=== PATIENT | male | born 1965 | race Caucasian/White ===

== ENCOUNTER 2024-12-26 11:45 | Inpatient (IN) | payer OTHER ==
[~2024-12-26] VITALS: Ht 167.6 cm; Wt 68.0 kg
[2024-12-26 14:47] LABS: EOSINOPHILS % (AUTO) 1.2 % (1.0-6.0); HEMATOCRIT 39.1 % (41-53); HEMOGLOBIN 13.2 g/dL (13.5-17.5); LYMPHOCYTES # (AUTO) 1.8 K/uL (1.0-4.8); LYMPHOCYTES % (AUTO) 13.8 % (22.0-44.0); MEAN CORPUSCULAR HEMOGLOBIN 31.6 pg (26.0-34.0); MEAN CORPUSCULAR HGB CONC 33.8 G/dL (31.0-37.0); MEAN CORPUSCULAR VOLUME 93 fL (80-100); MONOCYTES # (AUTO) 1.1 K/uL (0.1-1.0); MONOCYTES % (AUTO) 8.7 % (2.0-9.0); NEUTROPHILS # (AUTO) 9.7 K/uL (1.8-7.7); NEUTROPHILS % (AUTO) 75.3 % (40.0-70.0); PLATELET COUNT (AUTO) 706 K/uL (150-450); RED BLOOD CELL COUNT(AUTO) 4.19 MIL/uL (4.50-5.90); RED CELL DISTRIBUTION WIDTH 13.1 % (11.5-14.5); WHITE BLOOD COUNT (AUTO) 12.9 K/uL (4.5-11.0)
[2024-12-26] MEDS ORDERED: SODIUM CHLORIDE 0.9% 100 ML ONE (14:56)
[2024-12-26] MEDS ORDERED: 0.9% SODIUM CHLORIDE 10 ML SYRINGE IVP ONE (14:56)
[2024-12-26] MEDS ORDERED: IOHEXOL 350 MG/ML 100 ML VIAL ONE (14:56)
[2024-12-26 15:02] LABS: ALBUMIN 2.8 g/dL (3.4-5.0); BILIRUBIN,DIRECT 0.1 mg/dL (0.00-0.20); BILIRUBIN,TOTAL 0.4 mg/dL (0.1-1.0); TOTAL PROTEIN, SERUM 7.4 g/dL (6.4-8.2)
[2024-12-26 15:17] LABS: ANION GAP 8 mmol/L (8-16); B-TYPE NATRIURETIC PEPTIDE 22 pg/mL (0-100); CALCIUM, TOTAL 9.1 mg/dL (8.8-10.5); CARBON DIOXIDE 29 mmol/L (22-29); CHLORIDE 98 mmol/L (98-107); CREATININE 1.04 mg/dL (0.60-1.30); GLOMERULAR FILTR. RATE CALC > 60 mL/min (>60); GLUCOSE,RANDOM 115 mg/dL (70-110); POTASSIUM 4.2 mmol/L (3.5-5.1); SODIUM SERUM 135 mmol/L (136-145); UREA NITROGEN, BLOOD 24 mg/dL (7-18)
[2024-12-26 15:24] LABS: TROPONIN I-HIGH SENSITIVITY 6 ng/L (<76)
[2024-12-26] MEDS: AZITHROMYCIN 500 MG/NS 250 ML IV ONE (15:49)
[2024-12-26] MEDS: CefTRIAXone 1 GM/DEXTROSE 50 ML IV ONE (15:49)
[2024-12-26 16:08] LABS: APPEARANCE,URINE CLEAR (CLEAR); BILIRUBIN,URINE NEGATIVE (NEGATIVE); COLOR,URINE LIGHT YELLOW (YELLOW); GLUCOSE, URINE (UA) NEGATIVE (NEGATIVE); KETONES,URINE NEGATIVE (NEGATIVE); LEUKOCYTE ESTERASE ,URINE NEGATIVE (NEGATIVE); NITRATE,URINE NEGATIVE (NEGATIVE); OCCULT BLOOD,URINE NEGATIVE (NEGATIVE); PROTEIN,URINE TRACE mg/dL (NEGATIVE); UROBILINOGEN,URINE <=1.0 mg/dL (<=1.0)
[2024-12-26] MEDS ORDERED: ONDANSETRON HCL 4 MG/2 ML VIAL IVP PRN (17:00)
[2024-12-26] MEDS ORDERED: ZOLPIDEM TARTRATE 5 MG TABLET PO PRN (17:00)
[2024-12-26] MEDS ORDERED: ACETAMINOPHEN 325 MG TABLET PO PRN (17:00)
[2024-12-26] MEDS ORDERED: MAGNESIUM HYDROXIDE SUSPENSION 30 ML UDCUP PO PRN (17:00)
[2024-12-26] MEDS ORDERED: BISACODYL 10 MG RECTAL RECTAL SUPPOSITORY PR PRN (17:00)
[2024-12-26] MEDS ORDERED: MORPHINE SULFATE 2 MG/ML SYRINGE IVP PRN (17:00)
[2024-12-26] MEDS: AmLODIPine BESYLATE 5 MG TABLET PO ONE (17:47)
[2024-12-26 18:45] VITALS: BP 160/105; PULSE 88; RESP 18; TEMP 98; O2SAT 97
[2024-12-26] MEDS ORDERED: SODIUM CHLORIDE 3% 15 ML NEB SOLUTION NEB ONE (19:44)
[2024-12-26 20:14] VITALS: BP 158/90; PULSE 65; RESP 19; TEMP 98.2; O2SAT 94
[2024-12-26 20:30] VITALS: PULSE 69; RESP 18; O2SAT 95
[2024-12-26 20:45] VITALS: PULSE 79; RESP 20; O2SAT 99
[2024-12-26 21:00] VITALS: BP 158/90; PULSE 65; RESP 19; TEMP 98.2; O2SAT 97
[2024-12-26] MEDS: DOCUSATE SODIUM 100 MG CAPSULE PO SCH (21:00)
[2024-12-26] MEDS: HEPARIN SODIUM,PORCINE 5,000 UNITS/ML VIAL SQ SCH (23:51)
[2024-12-26 23:55] VITALS: BP 144/83; PULSE 79; RESP 18; TEMP 98.4; O2SAT 95
[2024-12-27] MEDS ORDERED: SODIUM CHLORIDE 3% 15 ML NEB SOLUTION NEB ONE ×2 (02:59→11:13)
[2024-12-27 03:00] VITALS: PULSE 74; RESP 18; O2SAT 96
[2024-12-27 03:15] VITALS: PULSE 79; RESP 18; O2SAT 99
[2024-12-27 03:33] VITALS: BP 130/77; PULSE 74; RESP 19; TEMP 98.7; O2SAT 96
[2024-12-27 07:00] LABS: BASOPHILS % (AUTO) 2.2 % (0.0-2.0); EOSINOPHILS % (AUTO) 2.5 % (1.0-6.0); HEMATOCRIT 35.3 % (41-53); HEMOGLOBIN 12.2 g/dL (13.5-17.5); LYMPHOCYTES # (AUTO) 1.5 K/uL (1.0-4.8); LYMPHOCYTES % (AUTO) 18.4 % (22.0-44.0); MEAN CORPUSCULAR HEMOGLOBIN 32.1 pg (26.0-34.0); MEAN CORPUSCULAR HGB CONC 34.5 G/dL (31.0-37.0); MEAN CORPUSCULAR VOLUME 93 fL (80-100); MONOCYTES # (AUTO) 0.9 K/uL (0.1-1.0); MONOCYTES % (AUTO) 10.6 % (2.0-9.0); NEUTROPHILS # (AUTO) 5.4 K/uL (1.8-7.7); NEUTROPHILS % (AUTO) 66.3 % (40.0-70.0); PLATELET COUNT (AUTO) 587 K/uL (150-450); RED CELL DISTRIBUTION WIDTH 13.2 % (11.5-14.5); WHITE BLOOD COUNT (AUTO) 8.1 K/uL (4.5-11.0)
[2024-12-27 07:07] LABS: HIV 1-2 SCREEN 4TH GEN W/RFLX Non Reactive (Non Reactive)
[2024-12-27] MEDS: PANTOPRAZOLE SODIUM 40 MG DR TABLET PO SCH (08:12)
[2024-12-27] MEDS: AmLODIPine BESYLATE 10 MG TABLET PO SCH (08:12)
[2024-12-27] MEDS ORDERED: FentaNYL CITRATE PF 100 MCG/2 ML VIAL ONE (08:19)
[2024-12-27] MEDS ORDERED: MIDAZOLAM HCL 2 MG/2 ML VIAL ONE (08:21)
[2024-12-27 12:09] LABS: PROTHROMBIN TIME 11.7 SEC (9.4-11.6)
[2024-12-27] MEDS: FentaNYL CITRATE PF 100 MCG/2 ML VIAL IVP ONE (13:06)
[2024-12-27 14:21] LABS: MTB PCR w/Rif. Resistance-SPUT NOT DETECTED (Not Detectd)
[2024-12-27 14:22] LABS: MTB PCR w/Rif. Resistance-SPUT NOT DETECTED (Not Detectd)
[2024-12-27 19:39] VITALS: BP 158/84; PULSE 73; RESP 18; TEMP 98.4; O2SAT 96
[2024-12-27 23:37] VITALS: BP 135/73; PULSE 70; RESP 18; TEMP 98.1; O2SAT 97
[2024-12-28 05:33] VITALS: BP 150/96; PULSE 63; RESP 19; TEMP 97.7; O2SAT 96
[2024-12-28 06:53] LABS: BASOPHILS % (AUTO) 0.9 % (0.0-2.0); EOSINOPHILS % (AUTO) 3.6 % (1.0-6.0); HEMATOCRIT 36.4 % (41-53); HEMOGLOBIN 12.7 g/dL (13.5-17.5); LYMPHOCYTES # (AUTO) 1.6 K/uL (1.0-4.8); LYMPHOCYTES % (AUTO) 20.9 % (22.0-44.0); MEAN CORPUSCULAR HEMOGLOBIN 32.2 pg (26.0-34.0); MEAN CORPUSCULAR HGB CONC 34.9 G/dL (31.0-37.0); MEAN CORPUSCULAR VOLUME 92 fL (80-100); MONOCYTES # (AUTO) 0.6 K/uL (0.1-1.0); MONOCYTES % (AUTO) 7.9 % (2.0-9.0); NEUTROPHILS # (AUTO) 5.2 K/uL (1.8-7.7); NEUTROPHILS % (AUTO) 66.7 % (40.0-70.0); PLATELET COUNT (AUTO) 585 K/uL (150-450); RED BLOOD CELL COUNT(AUTO) 3.95 MIL/uL (4.50-5.90); RED CELL DISTRIBUTION WIDTH 13.1 % (11.5-14.5); WHITE BLOOD COUNT (AUTO) 7.8 K/uL (4.5-11.0)
[2024-12-28 06:55] LABS: ANION GAP 6 mmol/L (8-16); CALCIUM, TOTAL 8.6 mg/dL (8.8-10.5); CARBON DIOXIDE 27 mmol/L (22-29); CHLORIDE 100 mmol/L (98-107); CREATININE 1.03 mg/dL (0.60-1.30); GLOMERULAR FILTR. RATE CALC > 60 mL/min (>60); GLUCOSE,RANDOM 107 mg/dL (70-110); POTASSIUM 4.3 mmol/L (3.5-5.1); SODIUM SERUM 133 mmol/L (136-145); UREA NITROGEN, BLOOD 21 mg/dL (7-18)
[2024-12-28 08:30] VITALS: BP 148/90; PULSE 68; RESP 16; TEMP 97.8; O2SAT 98
[2024-12-28 11:04] LABS: SPECIMENTYPE,BODY FLUID PLV
[2024-12-28 11:22] LABS: APPEARANCE,UNSPUN,BODY FLUID BLOODY (CLEAR); COLOR,BODY FLUID RED (LT YELLOW); TOTAL VOLUME,BODY FLUID 30 mL
[2024-12-28] MEDS ORDERED: 0.9% SODIUM CHLORIDE 15 ML NEB SOLUTION NEB ONE (11:58)
[2024-12-28] MEDS ORDERED: SODIUM CHLORIDE 3% 15 ML NEB SOLUTION NEB ONE (11:59)
[2024-12-28 12:41] LABS: PH, BODY FLUID 8
[2024-12-28 12:48] VITALS: BP 138/84; PULSE 78; RESP 18; TEMP 98; O2SAT 98
[2024-12-28 13:21] LABS: APPEARANCE,SPUN,BODY FLUID CLEAR (CLEAR); BASOPHILS,BODY FLUID 0 %; EOSINOPHILS,BF (ANAL) 0 %; LYMPHOCYTES,BODY FLUID 94 %; MONOCYTES,BODY FLUID 0 %; NEUTROPHILS,BODY FLUID 6 %; WBC, BODY FLUID 20 /cu. mm.
[2024-12-28 18:27] VITALS: BP 151/89; PULSE 74; RESP 18; TEMP 98.9; O2SAT 96
[2024-12-28 20:31] VITALS: BP 152/90; PULSE 66; RESP 18; TEMP 98.2; O2SAT 97
[2024-12-29 05:58] VITALS: BP 105/77; PULSE 61; RESP 18; TEMP 98.1; O2SAT 95
[2024-12-29] MEDS: HYDROCODONE/ACETAMINOPHEN 5-325 MG TABLET PO PRN (10:10)
[2024-12-29 12:07] LABS: QUANTIFERON+, Nil Value 0.01 IU/mL; QUANTIFERON+,Mitogen Value 4.16 IU/mL; QUANTIFERON+,TB1 Antigen Value 0.04 IU/mL; QUANTIFERON+,TB2 Antigen Value 0.04 IU/mL; QUANTIFERON, TB GOLD PLUS Negative (Negative)
[2024-12-29 12:07] LABS: TOTAL PROTEIN,BODY FLUID,REF 4.4 g/dL
[2024-12-29 20:22] VITALS: BP 152/85; PULSE 69; RESP 18; TEMP 98.3; O2SAT 97
[2024-12-30 05:35] VITALS: BP 143/74; PULSE 57; RESP 20; TEMP 98.1; O2SAT 98
[2024-12-30 08:00] VITALS: BP 138/84; PULSE 72; RESP 19; TEMP 97.9; O2SAT 97
[2024-12-30 20:52] VITALS: BP 130/97; PULSE 67; RESP 18; TEMP 97.9; O2SAT 98
[2024-12-31 05:26] VITALS: BP 144/96; PULSE 64; RESP 20; TEMP 97.7; O2SAT 98
[2024-12-31 07:58] VITALS: BP 143/92; PULSE 64; RESP 18; TEMP 97.8; O2SAT 98
[2024-12-31] MEDS ORDERED: INFLUENZA VIRUS VACCINE TVS (6MO+) 2024-25/PF 45 MCG/0.5 ML SYRINGE IM. ONE (19:30)
[2024-12-31 20:35] VITALS: BP 142/72; PULSE 67; RESP 18; TEMP 97.8; O2SAT 96
[2025-01-01 04:26] VITALS: BP 127/82; PULSE 61; RESP 18; TEMP 97.8; O2SAT 97
[2025-01-01 08:31] VITALS: BP 148/89; PULSE 70; RESP 18; TEMP 98.2; O2SAT 95
[2025-01-01 08:44] VITALS: BP 132/82; PULSE 57; RESP 18; TEMP 97.8; O2SAT 99
[2025-01-01 20:00] VITALS: BP 135/70; PULSE 63; RESP 18; TEMP 97.8; O2SAT 96
[2025-01-02 04:25] VITALS: BP 129/79; PULSE 61; RESP 18; TEMP 98.1; O2SAT 95
[2025-01-02 08:34] VITALS: BP 138/85; PULSE 58; RESP 18; TEMP 98; O2SAT 100
[2025-01-02 11:29] VITALS: BP 140/86; PULSE 63; RESP 17; TEMP 98.6; O2SAT 98
[2025-01-02 20:18] VITALS: BP 145/75; PULSE 62; RESP 18; TEMP 98.1; O2SAT 98
[2025-01-03 05:00] VITALS: BP 139/80; PULSE 60; RESP 17; TEMP 97.9; O2SAT 98
[2025-01-03 10:06] VITALS: BP 138/84; PULSE 59; RESP 18; TEMP 97.7; O2SAT 98
[2025-01-03] MEDS ORDERED: AMLO10TA55 PO (14:47)
[2025-01-03] MEDS ORDERED: DIVA500T69 PO ×2 (14:48→14:49)
[2025-01-03] MEDS ORDERED: DULO20CA71 PO (14:51)
[2025-01-03] MEDS ORDERED: DOCU-119 PO (14:51)
[2025-01-03] MEDS ORDERED: LEVO125T95 PO (14:52)
[2025-01-03] MEDS ORDERED: FAMO20 PO (14:52)
[2025-01-03] MEDS ORDERED: OLAN10TA26 PO (14:53)
[2025-01-03] MEDS ORDERED: POLY17PO62 PO (14:54)
[2025-01-03] MEDS ORDERED: OMEP-148 PO (14:54)
[2025-01-03] MEDS ORDERED: ACET650S14 PO (14:55)
[2025-01-03] MEDS ORDERED: ALBU18HF7 IH (14:56)
[2025-01-03] MEDS ORDERED: BENZ100C68 PO (14:57)
[2025-01-03] MEDS ORDERED: ESZO1TAB10 PO (14:58)
[2025-01-03] MEDS ORDERED: OLAN5TAB30 PO (14:59)
[2025-01-03] MEDS ORDERED: ACET-784 PO (15:17)
[2025-01-03] MEDS ORDERED: LEVO25CA4 PO (15:21)
[2025-01-03 20:27] VITALS: BP 152/93; PULSE 65; RESP 16; TEMP 97.9; O2SAT 97
[2025-01-04 06:20] VITALS: BP 135/88; PULSE 60; RESP 18; TEMP 98.2; O2SAT 99
[2025-01-04 07:45] VITALS: BP 160/98; PULSE 60; RESP 20; TEMP 97.7; O2SAT 100
[2025-01-04 20:08] VITALS: BP 143/92; PULSE 64; RESP 19; TEMP 98.6; O2SAT 98
[2025-01-05 04:48] VITALS: BP 137/86; PULSE 56; RESP 19; TEMP 97.8; O2SAT 100
[2025-01-05 07:30] VITALS: BP 137/86; PULSE 61; RESP 19; TEMP 98.2; O2SAT 99
[2025-01-05] MEDS: RIFAMPIN 300 MG CAPSULE PO SCH (17:17)
[2025-01-05] MEDS: ISONIAZID 300 MG TABLET PO SCH (17:17)
[2025-01-05] MEDS: PYRAZINAMIDE 500 MG TABLET PO SCH (17:17)
[2025-01-05] MEDS: ETHAMBUTOL HCL 400 MG TABLET PO SCH (17:17)
[2025-01-05] MEDS: PYRIDOXINE HCL 50 MG TABLET PO SCH (17:17)
[2025-01-05 19:47] VITALS: BP 135/80; PULSE 65; RESP 18; TEMP 98.1; O2SAT 99
[2025-01-06 04:46] VITALS: BP 131/83; PULSE 59; RESP 20; TEMP 98.3; O2SAT 99
[2025-01-06 10:13] VITALS: BP 149/95; PULSE 63; RESP 18; TEMP 97.6; O2SAT 98
[2025-01-06 19:35] VITALS: BP 142/85; PULSE 66; RESP 20; TEMP 98.1; O2SAT 99
[2025-01-07 05:10] VITALS: BP 136/89; PULSE 62; RESP 18; TEMP 97.6; O2SAT 100
[2025-01-07 08:44] VITALS: BP 157/92; PULSE 60; RESP 18; TEMP 98.2; O2SAT 100
[2025-01-07 19:54] VITALS: BP 141/84; PULSE 66; RESP 20; TEMP 98.5; O2SAT 98
[2025-01-08 04:47] VITALS: BP 140/91; PULSE 55; RESP 18; TEMP 97.9; O2SAT 100
[2025-01-08 08:48] VITALS: BP 144/86; PULSE 54; RESP 18; TEMP 97.8; O2SAT 100
[2025-01-08 20:00] VITALS: BP 143/84; PULSE 63; RESP 18; TEMP 97.9; O2SAT 99
[2025-01-09 05:00] VITALS: BP 136/78; PULSE 58; RESP 18; TEMP 97.9; O2SAT 99
[2025-01-09 08:54] VITALS: BP 140/90; PULSE 56; RESP 18; TEMP 97.7; O2SAT 99
[2025-01-09 19:55] VITALS: BP 143/80; PULSE 63; RESP 18; TEMP 98.1; O2SAT 99
[2025-01-10 04:30] VITALS: BP 132/80; PULSE 59; RESP 18; TEMP 97.8; O2SAT 98
[2025-01-10 08:27] VITALS: BP 137/74; PULSE 55; RESP 18; TEMP 98.8; O2SAT 99
[2025-01-10 20:05] VITALS: BP 142/84; PULSE 60; RESP 20; TEMP 97.9; O2SAT 98
[2025-01-11 06:07] VITALS: BP 145/87; PULSE 56; RESP 20; TEMP 97.6; O2SAT 99
[2025-01-11 12:24] LABS: BASOPHILS % (AUTO) 1.9 % (0.0-2.0); EOSINOPHILS % (AUTO) 7.7 % (1.0-6.0); HEMATOCRIT 39.5 % (41-53); HEMOGLOBIN 13.3 g/dL (13.5-17.5); LYMPHOCYTES # (AUTO) 2.1 K/uL (1.0-4.8); LYMPHOCYTES % (AUTO) 34.8 % (22.0-44.0); MEAN CORPUSCULAR HEMOGLOBIN 31.4 pg (26.0-34.0); MEAN CORPUSCULAR HGB CONC 33.7 G/dL (31.0-37.0); MEAN CORPUSCULAR VOLUME 93 fL (80-100); MONOCYTES # (AUTO) 0.6 K/uL (0.1-1.0); NEUTROPHILS # (AUTO) 2.8 K/uL (1.8-7.7); NEUTROPHILS % (AUTO) 45.6 % (40.0-70.0); PLATELET COUNT (AUTO) 334 K/uL (150-450); RED BLOOD CELL COUNT(AUTO) 4.23 MIL/uL (4.50-5.90); RED CELL DISTRIBUTION WIDTH 13.5 % (11.5-14.5); WHITE BLOOD COUNT (AUTO) 6.1 K/uL (4.5-11.0)
[2025-01-11 12:42] LABS: ALANINE AMINOTRANSFERASE 31 U/L (12-78); ALBUMIN 3.3 g/dL (3.4-5.0); ALKALINE PHOSPHATASE 100 U/L (46-116); ANION GAP 4 mmol/L (8-16); ASPARTATE AMINOTRANSFERASE 26 U/L (15-37); BILIRUBIN,TOTAL 0.4 mg/dL (0.1-1.0); CALCIUM, TOTAL 8.9 mg/dL (8.8-10.5); CARBON DIOXIDE 29 mmol/L (22-29); CHLORIDE 97 mmol/L (98-107); CREATININE 0.99 mg/dL (0.60-1.30); GLOMERULAR FILTR. RATE CALC > 60 mL/min (>60); GLUCOSE,RANDOM 125 mg/dL (70-110); POTASSIUM 4.6 mmol/L (3.5-5.1); SODIUM SERUM 130 mmol/L (136-145); UREA NITROGEN, BLOOD 26 mg/dL (7-18)
[2025-01-11] MEDS ORDERED: ETHA400T25 PO (16:23)
[2025-01-11] MEDS ORDERED: ISON300T90 PO (16:23)
[2025-01-11] MEDS ORDERED: PYRA500T33 PO (16:23)
[2025-01-11] MEDS ORDERED: RIFA300C63 PO (16:24)
[2025-01-11] MEDS ORDERED: PYRI-9 PO (16:24)
[2025-01-11] MEDS ORDERED: MAGN-169 PO (16:25)
== END 2025-01-11 17:29 | DRG 186 ==
LOC: EMS 12:01 → EDH 16:47 → 5N 18:46 → 4E 12-28 18:00 → 6S 12-31 19:52
PROVIDERS: ADMIT Internal Medicine; ATTEND Internal Medicine
PROC: 0W9B30Z Drainage of Left Pleural Cavity with Drainage Device, Percutaneous Approach (ICD-10-PCS; principal; 2024-12-27)
PROC: 0WPBX0Z Removal of Drainage Device from Left Pleural Cavity, External Approach (ICD-10-PCS; 2025-01-02)
DX: J90 Pleural effusion, not elsewhere classified (principal); J18.9 Pneumonia, unspecified organism; I10 Essential (primary) hypertension; D72.829 Elevated white blood cell count, unspecified; D75.839 Thrombocytosis, unspecified; Z77.098 Contact with and (suspected) exposure to other hazardous, chiefly nonmedicinal, chemicals; Z78.9 Other specified health status; Z87.891 Personal history of nicotine dependence
CPT/HCPCS: 71045; 71260; 76942; 80048; 80053; 80076; 81003; 82465; 82945; 83615; 83880; 83986; 84157; 84311; 84484; 85025; 85379; 85610; 86480; 87015; 87040; 87075; 87101; 87205; 87206; 87389; 87556; 88108; 88305; 89051; 93005; 94640; 96365; 96368; 99242; 99285; G0378; J0456; J0696; J1644; J2250; J3010; J7050; 36415-L1; 36415-TC; 87070